=== PATIENT | male | born 1965 | race Caucasian/White ===

== ENCOUNTER 2023-09-10 08:01 | Emergency (ER) | payer SELFPAY ==
[2023-09-10 08:02] VITALS: BP 154/98; PULSE 84; RESP 20; TEMP 36.2; O2SAT 98; BMI 22.4
--- NOTE | 2023-09-10 08:19 | ED.VIS.BACK ---
HPI History of Present Illness Chief Complaint: Back Informant: patient Onset/Context/Timing Onset: Yesterday Context: Gradual Onset Timing: Continuous Quality: - (Spasms) Location: Lumbar, Buttock, Right Leg and Left Leg Worsened by: improves with Movement Relieved by: Nothing Associated Symptoms Associated Symptoms: Radiation to Right Leg and Radiation to Left Leg; Negative for Numbness, Tingling, Fever, Abdominal Pain, Dysuria, Unable to Ambulate, Unable to Transfer, Urinary Retention, Urinary Incontinence, Constipation or Fecal Incontinence Narrative Narrative: Patient presents with back pain that began last night. Patient states it became worse today. Patient states he feels like there is spasms in his back. Patient states it is gradually getting worse. Patient states the pain is constant. Patient states it is over his lower lumbar area and radiates into his buttock and down both legs. Patient states it is worse with certain movements. Patient states nothing seems to help with the pain. Patient denies any paresthesias or weakness. Patient denies any radiation into his abdomen. Patient denies any bowel or bladder changes. Despite saying that his pain is worse with certain movements, patient is rolling over in bed. Patient is also getting up onto his hands and knees while in the bed. PFSH PFSH Medical History no medical history no medical history Home Medications cyclobenzaprine 10 mg tablet 10 mg PO QHS PRN PRN Muscle Spasm #10 TABLETS 09/10/23 [Rx Last Taken Unknown] naproxen 500 mg tablet (Naprosyn) 500 mg PO BID PRN pain #20 tabs 09/10/23 [Rx Last Taken Unknown] Allergy/AdvReac Type Severity Reaction Status Date / Time No Known Allergies Allergy Verified 09/10/23 08:27 Family History no significant family his Surgical History no surgical history no surgical history Social History Smoking Status: Current every day smoker tobacco type: cigarettes ROS ROS ED Constitutional Constitutional ED: Denies chills or fever(s) Eyes Eyes: Denies blurry vision or change in vision ENT ENT ED: Denies rhinorrhea or sore throat Cardiovascular Cardiovascular: Denies chest pain or palpitations Respiratory/Chest Respiratory/Chest: Denies cough or dyspnea Gastrointestinal Gastrointestinal: Reports nausea and vomiting Genitourinary Genitourinary ED: Reports urinary frequency; Denies dysuria or hematuria Musculoskeletal Musculoskeletal: Reports back pain; Denies neck pain Integumentary Denies abscess or rash Neurologic Neurologic: Reports headache(s); Denies weakness Allergic/Immunologic Allergic/Immunologic ED: Denies mouth swelling or urticaria EXAM Physical Exam Const Vital Signs: 09/10/23 08:02 Temperature 97.1 F L Temperature Source Temporal Pulse Rate 84 Respiratory Rate 20 H Blood Pressure 154/98 H Blood Pressure Mean 116 Pulse Ox 98 Oxygen Delivery Method Room Air Positive well nourished and well developed General Appearance ED: well developed and NAD HEENT Reports moist mucous membranes Neck supple and no JVD Back/Spine Back/Spine Narrative: There is mild tenderness over the lumbar spine and paraspinal muscles. Range of motion was slightly limited in all motions of the lumbar spine secondary to pain. Patient was able to roll over on the bed. Patient was able to get up onto his hands and knees in the bed. Strength is 5/5 bilaterally in the lower extremities. There are no sensory deficits noted. Deep tendon reflexes are 2/4 bilaterally in the lower extremities. Patient states he was having pain when he flexed his hips with strength testing. However, patient lifted his legs up off of the bed while he was trying to roll over in bed and did not indicate any pain with that. Lumbar Spine / Lower Back: ROM limited and straight leg raise negative bilaterally Neuro oriented x3 and no sensory deficits noted Sensorium / Orientation: alert Motor Exam: strength 5/5 throughout Deep Tendon Reflexes: Rt Patellar (L4): 2+, Lt Patellar (L4): 2+, Rt Ankle (S1): 2+ and Lt Ankle (S1): 2+ Deep Tendon Reflexes Back: Rt Patellar (L4): 2+, Lt Patellar (L4): 2+, Rt Ankle (S1): 2+ and Lt Ankle (S1): 2+ Psych mental status grossly normal MDM MDM MDM Narrative Medical decision making narrative: Smoking cessation was discussed. Patient was advised that this is most likely muscular strain. Patient was given injections of Toradol and Norflex here. Patient was given a prescription for Naprosyn and Flexeril. Patient was instructed to use ice to the area. Patient was instructed to follow-up with his primary care physician in 5 to 7 days. Patient understood and was agreeable with the plan. All questions were answered. Discharge Plan Triage Chief Complaint: Back ED Provider: Oneil Morales Dx/Rx/DC Orders Clinical Impression: Tobacco use disorder, Lumbosacral strain Instructions: ED Back Spasm, No Trauma Prescriptions: New cyclobenzaprine [cyclobenzaprine] 10 mg tablet 10 mg PO QHS PRN PRN (Reason: Muscle Spasm) Qty: 10 0RF naproxen [Naprosyn] 500 mg tablet 500 mg PO BID PRN (Reason: pain) Qty: 20 0RF Disposition Disposition: Home, Self Care
[2023-09-10] MEDS: Orphenadrine 60 MG/2 ML Ampul IM (08:31)
[2023-09-10] MEDS: Ketorolac 60 MG/2 ML Vial IM (08:31)
--- NOTE | 2023-09-10 08:40 | NURSING ---
Norflex given R thigh, toradol given L thigh
[2023-09-10 09:00] VITALS: BP 115/48; PULSE 61; RESP 16; TEMP 37.2; O2SAT 98
== END 2023-09-10 10:16 | disposition home or self-care (01) ==
PROVIDERS: Emergency Provider Emergency Medicine; Visit Provider Emergency Medicine
DX: S39.012A Strain of muscle, fascia and tendon of lower back, initial encounter (principal); F17.210 Nicotine dependence, cigarettes, uncomplicated; R51.9 Headache, unspecified; R35.0 Frequency of micturition; R11.2 Nausea with vomiting, unspecified; X58.XXXA Exposure to other specified factors, initial encounter
CPT/HCPCS: 96372; 99282